=== PATIENT | male | born 1990 | race African-American/Black ===

== ENCOUNTER 2018-11-02 14:10 | Emergency (ER) | payer OTHER ==
[~2018-11-02] VITALS: Ht 182.9 cm; Wt 102.5 kg
[2018-11-02] MEDS ORDERED: NKM (14:18)
[2018-11-02 14:21] VITALS: BP 146/77
--- NOTE | 2018-11-02 15:27 | Emergency Room Report ---
History of Present Illness General Chief Complaint: Upper Extremity Injury Source: Patient Present Illness HPI 28-year-old male with no significant past medical history here complaining of minimal pain in the right hand after an injury 2 weeks ago. Patient presents with deformity of right third metacarpal bone. He reports he has had multiple fractures in the past and was trying to have it healed by itself. However patient has been overusing his right hand playing basketball. Patient rates his pain 5 out of 10 and intermittent has taken ibuprofen with relief. Denies tingling, numbness, reduced range of motion. Denies pain radiation. Denies S OB, palpitation, chest pain, abdominal pain, head injury, and all other associated symptoms. Allergies: Coded Allergies: No Known Allergies (Unverified , 11/02/18) Patient History Past Medical History: see triage record Past Surgical History: unable to obtain Pertinent Family History: none Immunizations: UTD Reviewed Nursing Documentation: PMH: Agreed; PSxH: Agreed Nursing Documentation-PMH Past Medical History: No Stated History Review of Systems All Other Systems: negative except mentioned in HPI Physical Exam Vital Signs Date Time Temp Pulse Resp B/P (MAP) Pulse Ox O2 Delivery O2 Flow Rate FiO2 11/02/18 14:14 98.2 73 18 146/77 95 Room Air Sp02 EP Interpretation: reviewed, normal General Appearance: normal inspection, well appearing Head: normocephalic, atraumatic Eyes: bilateral eye normal inspection, bilateral eye PERRL ENT: normal ENT inspection, normal pharynx, normal voice Neck: normal inspection, full range of motion, supple Respiratory: normal inspection, chest non-tender, lungs clear, no wheezing Cardiovascular #1: normal inspection, normal peripheral pulses, regular rate, rhythm, normal capillary refill Cardiovascular #2: 2+ radial (R), 2+ radial (L) Gastrointestinal: normal inspection, soft Musculoskeletal: back normal, digits/nails normal, tender - right third metacarpal bone with deformity Neurologic: normal inspection, alert Psychiatric: normal inspection, judgement/insight normal Skin: normal inspection, no rash, warm/dry Lymphatic: normal inspection, no adenopathy Procedures Splinting Splinting : Consent: Verbal Location: right hand Splint: volar Pre-Proc Neuro Vasc Exam: normal Post-Proc Neuro Vasc Exam: normal Patient Tolerated: Well Complications: None Progress thrid and fourth fingers were audrey taped Medical Decision Making PA Attestation All my diagnosis and treatment plans were reviewed ad discussed with my supervising physician Dr. Curtis Diagnostic Impression: Primary Impression: Fracture of third metacarpal bone of right hand ER Course 28-year-old male with no significant past medical history here complaining of minimal pain in the right hand after an injury 2 weeks ago. Patient presents with deformity of right third metacarpal bone. He reports he has had multiple fractures in the past and was trying to have it healed by itself. However patient has been overusing his right hand playing basketball. Patient rates his pain 5 out of 10 and intermittent has taken ibuprofen with relief. Denies tingling, numbness, reduced range of motion. Denies pain radiation. Denies S OB, palpitation, chest pain, abdominal pain, head injury, and all other associated symptoms. Ddx considered but are not limited to: right hand fracture, right hand sprain, hand strain Vital signs: are WNL, pt. is afebrile H&PE are most consistent with: right displaced third metacarpal fx ORDERS: right hand Xray, splint, buddytape, Naproxen ED INTERVENTIONS: audrey tape and splint Splint was ordered, extremity was vascularly and neurovascularly intact after splint was applied. pt advised to follow up with pcp and further imaging may be needed. DISCHARGE: At this time pt. is stable for d/c to home. Will provide printed patient care instructions, and any necessary prescriptions. Care plan and follow up instructions have been discussed with the patient prior to discharge. Other X-Ray Diagnostic Results Other X-Ray Diagnostic Results : X-Ray ordered: right hand # of Views/Limited Vs Complete: 3 View Indication: Swelling EP Interpretation: Yes PA Xray: Interpretation reviewed, by supervising MD, and agrees with findings. Interpretation: other - displaced fx right third metacarpal Electronically Signed by: lemuel VALLEJO Scribe Text FINDINGS: Bones/joints: Mildly displaced, comminuted fracture of the distal third right metacarpal at the head and neck junction. Soft tissues: Soft tissue swelling over the dorsal right hand. IMPRESSION: Mildly displaced, comminuted fracture of the distal third right metacarpal at the head and neck junction. Last Vital Signs Date Time Temp Pulse Resp B/P (MAP) Pulse Ox O2 Delivery O2 Flow Rate FiO2 11/02/18 14:21 98.2 78 18 146/77 95 Room Air Disposition: HOME, SELF-CARE Condition: Stable Scripts Naproxen* (NAPROXEN*) 500 Mg Tablet 500 MG ORAL TWICE A DAY, #30 TAB Prov: Lemuel Richards 11/02/18 Referrals: Tamar WATTS,REFERRING (PCP) Patient Instructions: Metacarpal Fracture Additional Instructions: Follow-up with the primary care provider to be send to Ortho since this has been 2 weeks post fracture and has fused wrongfully and further imaging and specialist attention is needed Lemuel Richards Nov 02, 2018 15:27
[2018-11-02] MEDS ORDERED: NAPROXEN500 M2 ORAL (15:28)
[2018-11-02 15:50] VITALS: BP 129/71
[2018-11-02 15:55] VITALS: BP 141/79
== END 2018-11-02 15:50 | disposition home or self-care (01) ==
LOC: EMR 14:35
DX: S62.302A Unspecified fracture of third metacarpal bone, right hand, initial encounter for closed fracture (principal); Y93.67 Activity, basketball; Y92.9 Unspecified place or not applicable
CPT/HCPCS: 29125; 99283